=== PATIENT | male | born 1970 | race Caucasian/White ===

== ENCOUNTER 2020-12-28 02:10 | Emergency (ER) | payer SELFPAY ==
[~2020-12-28] VITALS: Ht 177.8 cm; Wt 124.7 kg
[2020-12-28 02:10] VITALS: BP 242/39
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
--- NOTE | 2020-12-28 03:00 | NUR ---
refer to code sheet
--- NOTE | 2020-12-28 03:11 | NUR ---
0206 PT ARRIVED BY AMBULANCE. CPR IN PROGRESS. PT INTUBATED WITH 7.5 TUBE AT 24 LIP. PATIENT SXNED BRIGHT RED BLOOD ON RETURN. PATIENT PLACED ON VENT AC 20 VT 500 PEEP 5 FIO2 100%.
--- NOTE | 2020-12-28 03:14 | NUR ---
CALLED CLAIM TAKER OFFICE
--- NOTE | 2020-12-28 03:21 | NUR ---
[facility] CALLED SPOKE TO MASSIEL STATES HE IS ELIGIBLE BUT NEED MORE INFO WILL CALL BACK IN APPROX 1 HR. #[phone].
--- NOTE | 2020-12-28 04:20 | NUR ---
Destinee love in [facility] - 12/28/20 at 0422 by [email or web address] Call Ji ASHLEY for possible ID on patient
--- NOTE | 2020-12-28 04:20 | NUR ---
Per [place] PD call the station for possible ID on patient.
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
--- NOTE | 2020-12-28 05:35 | NUR ---
Starla from [facility] called about updates and ID on patient-- unable to provide information as of now, will be able to report after sole stitcher hand IDs patient
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
--- NOTE | 2020-12-28 07:10 | NUR ---
Heating Unit Mechanic transport team at bedside, will transport patient according to marketing traffic manager team
--- NOTE | 2020-12-28 07:22 | NUR ---
patient discharged, roundhouse worker transported patient out of bed 10
== END 2020-12-28 02:36 ==
LOC: EDBD 02:10 → MED 02:10
DX: I46.9 Cardiac arrest, cause unspecified (principal)
CPT/HCPCS: 31500; 32551; 92950; 99291